=== PATIENT | male | born 1960 | race Two or more races ===

== ENCOUNTER 2021-09-03 13:22 | Emergency (ER) | payer OTHER ==
[~2021-09-03] VITALS: Ht 175.3 cm; Wt 98.0 kg
[2021-09-03] MEDS ORDERED: GLIMEPIRIDE2 M1 (13:33)
[2021-09-03] MEDS ORDERED: COZAAR25 MG (13:33)
[2021-09-03] MEDS ORDERED: METFORMIN HCL1000 M1 (13:33)
[2021-09-03] MEDS ORDERED: SIMVASTATIN5 MG (13:34)
[2021-09-03] MEDS ORDERED: ULTRAM50 MG PO (15:45)
== END 2021-09-03 15:54 | disposition home or self-care (01) ==
LOC: ER 13:22
DX: M25.552 Pain in left hip (principal); I10 Essential (primary) hypertension; E11.9 Type 2 diabetes mellitus without complications; Z79.84 Long term (current) use of oral hypoglycemic drugs